=== PATIENT | male | born 1950 | race Caucasian/White ===

== ENCOUNTER 2021-03-21 12:51 | Inpatient (IN) | payer MEDICARE, BC ==
[~2021-03-21] VITALS: Ht 185.4 cm; Wt 105.2 kg
[~2021-03-21 12:51] MED LIST: ALBU1.257 IH; FOLI1TAB16 PO; FURO40TA5 PO; LACT10SO7 PO; LORA1TAB PO
--- NOTE | 2021-03-21 13:07 | NUR ---
TO ER BED 11, BIB RA 76 FROM HOME,C/O PAIN IN UMBILICAL HERNIA SITE AFTER CRAWLING THIS MORNING LOOKING FOR HIS PHONE, AAOX3, CONNECTED TO MONITOR
[2021-03-21 13:45] LABS: BASOPHILS # (AUTO) 0.1 K/uL (0.0-0.2); BASOPHILS % (AUTO) 0.8 % (0.0-2.0); EOSINOPHILS % (AUTO) 0.5 % (0.0-6.0); HEMATOCRIT 42 % (39-51); HEMOGLOBIN 13.8 g/dL (13.5-17.5); LYMPHOCYTES # (AUTO) 0.2 K/uL (0.8-4.8); LYMPHOCYTES % (AUTO) 1.3 % (20.0-44.0); MEAN CORPUSCULAR HGB CONC 33 g/dl (31.0-36.0); MEAN CORPUSCULAR VOLUME 106 fL (80-96); MONOCYTES # (AUTO) 0.4 K/uL (0.1-1.30); MONOCYTES % (AUTO) 3.4 % (2.0-12.0); NEUTROPHILS # (AUTO) 11.9 K/uL (1.8-8.9); PLATELET COUNT (AUTO) 101 K/uL (150-450); RED BLOOD CELL COUNT(AUTO) 3.95 MIL/uL (4.5-6.0); WHITE BLOOD COUNT (AUTO) 12.7 K/uL (4.3-11.0)
[2021-03-21 13:52] LABS: CALCIUM, SERUM 8.3 mg/dL (8.5-10.1); CREATININE 1.2 mg/dL (0.6-1.3); POTASSIUM 4.8 mmol/L (3.5-5.1)
[2021-03-21 13:58] LABS: ALBUMIN 2.5 g/dL (3.4-5.0); BILIRUBIN,DIRECT 5.6 mg/dL (0.0-0.2); BILIRUBIN,TOTAL 8.4 mg/dL (0.2-1.0); TOTAL PROTEIN, SERUM 6.3 g/dL (6.4-8.2)
--- NOTE | 2021-03-21 14:26 | NUR ---
UNABLE TO PROVIDE URINE AT THIS TIME
[2021-03-21 14:39] LABS: BAND % (MANUAL) 14 % (0.0-5.0); LYMPHOCYTES % (MANUAL) 4 % (16-48); MONOCYTES % (MANUAL) 5 % (0-11.0); NEUTROPHILS % (MANUAL) 77 (42-76)
[2021-03-21] MEDS ORDERED: ONDANSETRON HCL/PF 4 MG/2 ML VIAL ONE (15:24)
[2021-03-21] MEDS ORDERED: MORPHINE SULFATE INJ 4 MG/ML DISP.SYRIN ONE (15:25)
[2021-03-21] MEDS ORDERED: ONDANSETRON HCL/PF 4 MG/2 ML VIAL IVP ONE (15:30)
[2021-03-21] MEDS ORDERED: MORPHINE SULFATE INJ 2 MG/ML DISP.SYRIN IV ONE (15:30)
[2021-03-21] MEDS ORDERED: TEMA15CA PO (16:07)
[2021-03-21] MEDS ORDERED: OXYC10TA49 PO (16:07)
[2021-03-21] MEDS ORDERED: LOSA25TA27 PO (16:07)
[2021-03-21] MEDS ORDERED: VITA1TAB56 PO (16:07)
--- NOTE | 2021-03-21 16:42 | NUR ---
STILL UNABLE TO GIVE URINE
--- NOTE | 2021-03-21 16:55 | NUR ---
EPIC CALLED PROPERTY MANAGER PAGED
--- NOTE | 2021-03-21 17:24 | NUR ---
COVID SWAB DONE AND SENT TO LAB
--- NOTE | 2021-03-21 18:05 | NUR ---
CHARLOTTE NARAYAN AT BEDSIDE
--- NOTE | 2021-03-21 19:15 | NUR ---
URINE COLLECTED AND SENT TO LAB
--- NOTE | 2021-03-21 19:25 | NUR ---
REC'D REPORT FROM LUCITA OROZCO FOR ADILENE
--- NOTE | 2021-03-21 19:29 | NUR ---
CALLED LAB TO F/U ON COVID RESULT. "RETESTING SAMPLE" ANOTHER 10-15 MIN
[2021-03-21 19:41] LABS: BILIRUBIN,URINE SMALL (NEGATIVE); COLOR,URINE YELLOW (YELLOW); LEUKOCYTE ESTERASE ,URINE NEGATIVE (NEGATIVE); NITRITE, URINE NEGATIVE (NEGATIVE); PROTEIN,URINE NEGATIVE (NEGATIVE); UGLUCOSE NEGATIVE (NEGATIVE)
--- NOTE | 2021-03-21 19:45 | NUR ---
LAB REPORTED PT COVID ANTIGEN POSITIVE; CONTACT DROPLET ISO PRECAUTIONS IN PLACE.
--- NOTE | 2021-03-21 19:45 | NUR ---
MRSA SWAB COLLECTED AND SENT TO LAB. PATIENT'S BELONGINGS LIST DONE.
[2021-03-21 19:50] LABS: BACTERIA,URINE None seen /HPF (None Seen); MUCUS,URINE Few /LPF (None Seen); RBC,URINE 0-2 /HPF (0-2); SQUAMOUS EPITHELIAL CELL,UR Few /HPF (None Seen); WBC,URINE 0-2 /HPF (0-3)
--- NOTE | 2021-03-21 21:12 | NUR ---
attempted to give report, rn with pt, will call back
--- NOTE | 2021-03-21 21:24 | NUR ---
PER BILLET DRILLER FABRICE VERBAL ORDER, OK TO GIVE 2MG ATIVAN
[2021-03-21] MEDS ORDERED: LORAZEPAM INJ 2 MG/ML VIAL IV ONE (21:30)
[2021-03-21] MEDS: TOBRAMYCIN OPHTH 5ML 5 ML BOTTLE RIGHTEYE SCH (21:30)
[2021-03-21] MEDS ORDERED: HYDROCODONE/APAP 5/325MG TABLET PO PRN (21:30)
[2021-03-21] MEDS ORDERED: VANCOMYCIN 1.5 GM in IV D5W 500ml IV ONE (21:30)
--- NOTE | 2021-03-21 21:50 | NUR ---
GAVE REPORT TO LUCITA PRESCOTT FOR ADILENE
--- NOTE | 2021-03-21 21:55 | NUR ---
2155 Admitted from ER 70 year old male with Dx of Fractured left femur screw. Patient awake alert oriented x 4. Totally dependent on ADLs. On R/A with O2 saturation 98%. No c/o shortness of breath of difficulty breathing. Admission assessment done. Noted with multiple scars and severe dryness on both legs and feet. Patient with c/o pain on both legs. Handled gently during care. Good bed bath provided. Placed on isolation for covid. All precautions strictly observed. Turned and repositioned for comfort. Call light placed within reach and instructed patient to call for assistance.
[2021-03-21] MEDS ORDERED: VANCOMYCIN 1 GM VIAL ONE (22:33)
[2021-03-21] MEDS: CHLORDIAZEPOXIDE HCL 25 MG CAPSULE PO ONE ×2 (23:06→23:20)
[2021-03-21] MEDS: ENOXAPARIN SODIUM 40 MG/0.4 ML DISP.SYRIN SQ SCH (23:08)
[2021-03-21] MEDS: MORPHINE SULFATE INJ 2 MG/ML DISP.SYRIN IV PRN (23:10)
[2021-03-21] MEDS: IV NS 0.9% 1,000 ML IV PRN (23:11)
[2021-03-22] MEDS ORDERED: TOBRAMYCIN OPHTH 5ML 5 ML BOTTLE ONE
[2021-03-22] MEDS: TOBRAMYCIN OPHTH 5ML 5 ML BOTTLE RIGHTEYE SCH ×6 (01:00→21:00)
[2021-03-22] MEDS: MORPHINE SULFATE INJ 2 MG/ML DISP.SYRIN IV PRN ×5 (04:12→23:41)
--- NOTE | 2021-03-22 07:58 | NUR ---
RN CLOSING NOTE PATIENT REMAINS IN BED, A/O X 3-4. Totally dependent on ADLs. On R/A with O2 saturation 97%. No c/o shortness of breath of difficulty breathing. Patient with c/o pain on both legs.MEDICTED FOR PAIN NEEDED, and attended to all patient needs during shift. Placed on isolation for covid 19. All precautions strictly observed. Call light within reach, bed in low position, locked/ Will endorse to oncoming nurse for plan of care.
[2021-03-22 08:00] VITALS: BP 147/79
[2021-03-22 08:02] LABS: BASOPHILS % (AUTO) 0.2 % (0.0-2.0); EOSINOPHILS % (AUTO) 3.1 % (0.0-6.0); HEMATOCRIT 40 % (39-51); HEMOGLOBIN 13.9 g/dL (13.5-17.5); LYMPHOCYTES # (AUTO) 0.7 K/uL (0.8-4.8); LYMPHOCYTES % (AUTO) 5.1 % (20.0-44.0); MEAN CORPUSCULAR HGB CONC 35 g/dl (31.0-36.0); MEAN CORPUSCULAR VOLUME 104 fL (80-96); MONOCYTES # (AUTO) 1.9 K/uL (0.1-1.30); MONOCYTES % (AUTO) 13.6 % (2.0-12.0); NEUTROPHILS # (AUTO) 10.9 K/uL (1.8-8.9); PLATELET COUNT (AUTO) 87 K/uL (150-450); RED BLOOD CELL COUNT(AUTO) 3.85 MIL/uL (4.5-6.0); WHITE BLOOD COUNT (AUTO) 13.9 K/uL (4.3-11.0)
[2021-03-22 08:25] LABS: CARBON DIOXIDE 31 mmol/L (21-32); CHLORIDE 93 mmol/L (98-107); CREATININE 1.7 mg/dL (0.6-1.3); GLUCOSE 90 mg/dL (74-106); MAGNESIUM 1.8 mg/dL (1.8-2.4); PHOSPHORUS 3.3 mg/dL (2.5-4.9); POTASSIUM 4.9 mmol/L (3.5-5.1); SODIUM SERUM 132 mmol/L (136-145); UREA NITROGEN, BLOOD 29 mg/dL (7-18)
[2021-03-22 08:47] LABS: CHOLESTEROL 72 mg/dL (<200); HDL CHOLESTEROL 12 mg/dL (40-60); LDL 36 mg/dL (0-99); TRIGLYCERIDES 100 mg/dL (30-150)
--- NOTE | 2021-03-22 09:48 | NUR ---
WOUND CARE CONSULT: REVIEWED CHART, NURSING DOCUMENTATION AND SPOKE WITH NURSING STAFF. DEFER TO ORTHO FOR LEFT LEG ISSUE. RECOMMENDATIONS MADE FOR SKIN PROTECTION. DISCUSSED WITH NURSING STAFF. CURRENT DARIN SCORE IS 15. IN AGREEMENT WITH PLAN OF CARE. Addendum: 03/22/21 at 1007 by TING APARICIO WNDNU ADDITIONAL: PHOTO WERE FOUND OF DISCOLORATION TO BACK, FOOT WOUNDS/CALLUSES, DRY ABRASION TO KNEES AND SCARRING TO UPPER LEFT LEG, ALL PRESENT ON ADMISSION. DPM CONSULT CALLED TO DR OAKLEY. IN AGREEMENT WITH PLAN OF CARE.
[2021-03-22] MEDS ORDERED: Z GUARD REMEDY 2 OZ OINT TP PRN (10:00)
[2021-03-22 12:00] VITALS: BP 146/73
[2021-03-22] MEDS ORDERED: THIAMINE HCL 100 MG TABLET PO ONE (13:00)
[2021-03-22] MEDS: VANCOMYCIN 1.25 GM in IV D5W 250 ML IV SCH (13:06)
[2021-03-22] MEDS: FOLIC ACID 1 MG TABLET PO SCH (14:05)
[2021-03-22 16:00] VITALS: BP 151/61
[2021-03-22] MEDS: CHLORDIAZEPOXIDE HCL 25 MG CAPSULE PO SCH ×2 (16:04→21:30)
--- NOTE | 2021-03-22 18:45 | NUR ---
RN NOTE PT RESTING IN BED, ALERT AND RESPONSIVE. CONTINUES ON PAIN MGT WITH GOOD EFFECT. ON ROOM AIR WITH O2 SAT OF 95. JOSHUA MIDLINE IN PLACE AND PATENT, L HAND G [address] AND PATENT. CONTINUES ON IVF NS @60CC/HR. ALL DUE MEDICATIONS GIVEN. MORNING CARE DONE. SAFETY MEASURES FOLLOWED. WILL ENDORSE TO RN. ON COVID 19 AND BLOOD PREC (HEP C) FOLLOWED.
--- NOTE | 2021-03-22 19:20 | NUR ---
air brake rigger opening notes Pt is laying in bed comfortably watching TV. Pt is alert and orientedX4. Respiration is normal in room air. No SOB. No S/S of distress noted. IV site at L hand is clean, intact and infusing well NS @ 69 ml/hr. JOSHUA midline is clean, intact and flushes easily. Tele monitor showed SR /S tachy hr at 103. Safety precautions is maintained. Bed at low position, brakes locked, side rails upX3, hob elevated, bed alarm is on and call light is within reach. Will continue to monitor.
[2021-03-22 20:00] VITALS: BP 133/75
[2021-03-22] MEDS: ENOXAPARIN SODIUM 40 MG/0.4 ML DISP.SYRIN SQ SCH (21:31)
--- NOTE | 2021-03-22 21:57 | NUR ---
RN notes Pt refused Eye drop abx. Pt stated No! It has been two, three times!! Explained risks and benefits. Pt keep refusing. Will continue to monitor.
--- NOTE | 2021-03-22 23:44 | NUR ---
RN notes Pt is complaining of pain on abdomen and requesting pain meds. Administered morphine 2mg/ iv push/prn for pain. VS is stable. Safety precautions is maintained. Will continue to monitor.
[2021-03-23] VITALS (34 sets, daily range): BP systolic 59–154; BP diastolic 21–78
[2021-03-23] MEDS: VANCOMYCIN 1.25 GM in IV D5W 250 ML IV SCH (00:31)
[2021-03-23] MEDS: IV NS 0.9% 1,000 ML IV PRN (00:34)
[2021-03-23] MEDS: TOBRAMYCIN OPHTH 5ML 5 ML BOTTLE RIGHTEYE SCH ×6 (00:42→21:55)
[2021-03-23] MEDS: ONDANSETRON HCL/PF 4 MG/2 ML VIAL IVP PRN ×2 (00:44→08:53)
--- NOTE | 2021-03-23 00:44 | NUR ---
RN notes Pt is complaining of nausea and no vomit. Administered zofran/iv push/prn as ordered. Safety precautions is maintained. Will continue to monitor.
--- NOTE | 2021-03-23 02:36 | NUR ---
RN notes Pt is complaining of pain on abdomen and legs and requesting pain meds. Administered norco 5/po/prn as ordered for pain. Safety precautions is maintained. Will continue to monitor.
--- NOTE | 2021-03-23 04:00 | NUR ---
RN notes Pt accidentaly removed IV site on L hand. JOSHUA midline is intact, patent and flushes easily.
[2021-03-23] MEDS: MORPHINE SULFATE INJ 2 MG/ML DISP.SYRIN IV PRN ×2 (04:39→09:29)
[2021-03-23] MEDS: CHLORDIAZEPOXIDE HCL 25 MG CAPSULE PO SCH ×3 (04:49→21:00)
--- NOTE | 2021-03-23 05:00 | NUR ---
RN notes Pt vomited one time. Pt refused to meds. Explained riks and benefits.
--- NOTE | 2021-03-23 06:30 | NUR ---
young adult librarian closing notes Pt is resting in bed comfortably. Pt is alert and orientedX4. Respiration is normal in room air. No SOB. No S/S of distress noted. JOSHUA midline is clean, intact and infusing well NS@ 60 ml/hr. Tele monitor showed SR /S tachy hr at 130. routine meds were given as ordered including pain meds for pain management. Safety precautions is maintained. Bed at low position, brakes locked, side rails upX3, hob elevated, bed alarm is on and call light is within reach. Will endorse to am nurse for ADILENE.
[2021-03-23 07:50] LABS: BASOPHILS # (AUTO) 0.1 K/uL (0.0-0.2); BASOPHILS % (AUTO) 0.4 % (0.0-2.0); CALCIUM, SERUM 7.9 mg/dL (8.5-10.1); CARBON DIOXIDE 31 mmol/L (21-32); CHLORIDE 91 mmol/L (98-107); CREATININE 3.1 mg/dL (0.6-1.3); EOSINOPHILS % (AUTO) 2.5 % (0.0-6.0); GLUCOSE 125 mg/dL (74-106); HEMATOCRIT 42 % (39-51); HEMOGLOBIN 14.3 g/dL (13.5-17.5); LYMPHOCYTES # (AUTO) 1.5 K/uL (0.8-4.8); LYMPHOCYTES % (AUTO) 9.4 % (20.0-44.0); MAGNESIUM 1.7 mg/dL (1.8-2.4); MEAN CORPUSCULAR HGB CONC 34 g/dl (31.0-36.0); MEAN CORPUSCULAR VOLUME 104 fL (80-96); MONOCYTES # (AUTO) 1.6 K/uL (0.1-1.30); MONOCYTES % (AUTO) 9.5 % (2.0-12.0); NEUTROPHILS # (AUTO) 12.8 K/uL (1.8-8.9); NEUTROPHILS % (AUTO) 78.2 % (43.0-81.0); PHOSPHORUS 3.8 mg/dL (2.5-4.9); POTASSIUM 4.7 mmol/L (3.5-5.1); RED BLOOD CELL COUNT(AUTO) 4.03 MIL/uL (4.5-6.0); SODIUM SERUM 130 mmol/L (136-145); UREA NITROGEN, BLOOD 47 mg/dL (7-18); WHITE BLOOD COUNT (AUTO) 16.4 K/uL (4.3-11.0)
--- NOTE | 2021-03-23 08:10 | NUR ---
RN OPENING NOTES RECEIVED PATIENT AWAKE, ALERT/ORIENTED X 4. ON ROOM AIR WITH NO SOB OR ANY RESPIRATORY DISTRESS NOTED. IV LINE ON JOSHUA MIDLINE PATENT AND INTACT INFUSING NS @ 60 ML/HR. ALL SAFETY MEASURES IN PLACED. BED LOCKED, AT LOWEST POSITION WITH SIDE RAILS UP. HOB ELEVATED. CALL LIGHT WITHIN REACH. WILL CONTINUE TO MONITOR.
--- NOTE | 2021-03-23 08:56 | NUR ---
RN NOTE PATIENT VOMITED COFFEE GROUND EMESIS. DR. TORRES NOTIFIED.
[2021-03-23] MEDS: FOLIC ACID 1 MG TABLET PO SCH (09:00)
[2021-03-23 10:24] LABS: PLATELET COUNT (AUTO) 120 K/uL (150-450)
[2021-03-23] MEDS ORDERED: LACTULOSE 10 G/15 ML UDC (PYXIS) PO PRN (11:30)
[2021-03-23] MEDS ORDERED: APIXABAN 2.5 MG TABLET PO SCH (11:30)
--- NOTE | 2021-03-23 11:45 | NUR ---
RN NOTES HELD MEDICATION ELIQUIS DUE TO COFFEE GROUND EMESIS.
[2021-03-23] MEDS ORDERED: IV D5/ 0.9% NACL 1,000 ML IV PRN (12:00)
[2021-03-23] MEDS: METOPROLOL TARTRATE 50 MG TABLET PO SCH ×3 (12:00→23:38)
[2021-03-23] MEDS: PANTOPRAZOLE 40 MG VIAL IV SCH (12:30)
--- NOTE | 2021-03-23 13:07 | NUR ---
RN NOTE PATIENT FOUND WITH HOB AT 60 DEGREES, COVERED IN COFFEE GROUND EMESIS, AND NON RESPONSIVE. RAPID RESPONSE TEAM CALLED.
--- NOTE | 2021-03-23 13:08 | NUR ---
SS consult requested for ETOH abuse. SW will follow up at a later time.
[2021-03-23 13:31] LABS: ABG BASE EXCESS -8.7 mmol/L; ABG OXYGEN SATURATION 99.4 % (92.0-98.5); ABG PCO2 77.9 mmHg (35.0-45.0); ABG PO2 316.8 mmHg (75.0-100.0); AaDO2 318.3 mmHg; COHb 1.3 % (0.5-1.5); MetHb 0.3 % (0.0-1.5); O2Hb 97.8 % (94.0-97.0); SITE, ABG Right Femoral; VENT MODE, BG MANUAL VENTILATION
--- NOTE | 2021-03-23 13:45 | NUR ---
RT Code blue was called at 1305, CPR was already started when RT team arrived. Pt was intubated at [address] Branch with 8.0 ET tube secured at 26cm at the lip line, positive CO2 color changed noticed on CO2 detector, Equal bilateral breath sounds, and chest rise noted. ROSC was obtained at 1327, pt was transferred to ICU and placed on mechanical ventilation with noted settings. Addendum: 03/23/21 at 1441 by YUKI ALICIA RT Amended: Links added.
[2021-03-23] MEDS ORDERED: PROPOFOL 100 ML IV PRN (14:00)
--- NOTE | 2021-03-23 14:00 | NUR ---
RN NOTE CALLED CONCEPCION FAMILY MEMBER FOR UPDATE ON PATIENT, THERE WAS NO ANSWER, UNABLE TO LEAVE VOICEMAIL DUE TO FULL MAILBOX.
[2021-03-23] MEDS ORDERED: KETAMINE HCL(200MG/20ML) 10 MG/ML VIAL IV STA ×2 (14:48→14:56)
[2021-03-23] MEDS ORDERED: SODIUM BICARBONATE SYR 50 MEQ/50 ML DISP.SYRIN IV ONE (15:39)
[2021-03-23] MEDS ORDERED: EPINEPHRINE (1:10,000) SYRINGE 1 MG/10 ML DISP.SYRIN IVP ONE (15:39)
[2021-03-23 16:31] LABS: ABG BASE EXCESS -13.4 mmol/L; ABG OXYGEN SATURATION 92.7 % (92.0-98.5); ABG PCO2 50.8 mmHg (35.0-45.0); ABG PH 7.115 (7.350-7.450); ABG PO2 92.3 mmHg (75.0-100.0); AaDO2 207.1 mmHg; COHb 1.5 % (0.5-1.5); MetHb 0.3 % (0.0-1.5); PEEP,BG 0 cm H2O; SITE, ABG A-Line; VT, ABG 550 mL
[2021-03-23] MEDS ORDERED: SODIUM BICARBONATE SYR 50 MEQ/50 ML DISP.SYRIN IV STA (16:46)
[2021-03-23 16:55] LABS: BASOPHILS # (AUTO) 0.1 K/uL (0.0-0.2); BASOPHILS % (AUTO) 0.6 % (0.0-2.0); EOSINOPHILS % (AUTO) 1.7 % (0.0-6.0); HEMATOCRIT 40 % (39-51); HEMOGLOBIN 12.8 g/dL (13.5-17.5); LYMPHOCYTES # (AUTO) 1.9 K/uL (0.8-4.8); LYMPHOCYTES % (AUTO) 8.6 % (20.0-44.0); MEAN CORPUSCULAR HGB CONC 32 g/dl (31.0-36.0); MEAN CORPUSCULAR VOLUME 111 fL (80-96); MONOCYTES # (AUTO) 1.6 K/uL (0.1-1.30); MONOCYTES % (AUTO) 7.3 % (2.0-12.0); NEUTROPHILS # (AUTO) 18.2 K/uL (1.8-8.9); NEUTROPHILS % (AUTO) 81.8 % (43.0-81.0); PLATELET COUNT (AUTO) 181 K/uL (150-450); RED BLOOD CELL COUNT(AUTO) 3.65 MIL/uL (4.5-6.0); WHITE BLOOD COUNT (AUTO) 22.3 K/uL (4.3-11.0)
[2021-03-23] MEDS ORDERED: NOREPINEPHRINE 8 MG in IV NS 0.9% 242 ML IV PRN (17:00)
[2021-03-23] MEDS: PHENYLEPHRINE HCL IN 0.9% NACL 50 MG in PREMIX 1 EA IV PRN ×2 (17:09→19:53)
[2021-03-23 17:20] LABS: ALANINE AMINOTRANSFERASE 98 U/L (12-78); ALBUMIN 1.8 g/dL (3.4-5.0); ALKALINE PHOSPHATASE 239 U/L (46-116); ASPARTATE AMINOTRANSFERASE 628 U/L (15-37); BILIRUBIN,TOTAL 14.6 mg/dL (0.2-1.0); CALCIUM, SERUM 7.6 mg/dL (8.5-10.1); CARBON DIOXIDE 17 mmol/L (21-32); CHLORIDE 91 mmol/L (98-107); MAGNESIUM 2.7 mg/dL (1.8-2.4); POTASSIUM 5.6 mmol/L (3.5-5.1); SODIUM SERUM 134 mmol/L (136-145); TOTAL PROTEIN, SERUM 4.2 g/dL (6.4-8.2); UREA NITROGEN, BLOOD 53 mg/dL (7-18)
[2021-03-23 17:46] LABS: GLUCOSE 20 mg/dL (74-106); PHOSPHORUS 9.5 mg/dL (2.5-4.9)
[2021-03-23] MEDS ORDERED: DEXTROSE 50%-WATER 50 ML DISP.SYRIN IVP ONE (18:00)
[2021-03-23 18:35] LABS: BAND % (MANUAL) 6 % (0.0-5.0); EOSINOPHILS % (MANUAL) 1 % (0-4); LYMPHOCYTES % (MANUAL) 12 % (16-48); MONOCYTES % (MANUAL) 4 % (0-11.0); NEUTROPHILS % (MANUAL) 74 (42-76); REACTIVE LYMPHOCYTES 3 % (0-0)
[2021-03-23] MEDS ORDERED: ALBUMIN 25% 25 GM in PREMIX 1 EA IV PRN (19:00)
--- NOTE | 2021-03-23 19:28 | NUR ---
RT Pt received orally intubated w/ 8.0 ETT secured at 26cm at the lip line on [facility] vent on settings AC mode, RR 28, VT 580, FIO2 50%, PEEP +0. Ordered ABG done and results reported to MD Ware. Airway patent and secured. RESIST COATER DEVELOPER done. Pt suctioned. Alarms set and audible. Ambubag at bedside. Vent plugged into red outlet. Will cont to monitor. Addendum: 03/23/21 at 2030 by ALVAREZ ACUNA RT Amended: Links added.
[2021-03-23 19:37] LABS: ABG BASE EXCESS -12.1 mmol/L; ABG OXYGEN SATURATION 95.1 % (92.0-98.5); ABG PCO2 44.9 mmHg (35.0-45.0); ABG PH 7.169 (7.350-7.450); ABG PO2 99.7 mmHg (75.0-100.0); AaDO2 206.3 mmHg; COHb 1.2 % (0.5-1.5); MetHb 0.1 % (0.0-1.5); O2Hb 93.9 % (94.0-97.0); SITE, ABG A-Line
--- NOTE | 2021-03-23 19:41 | NUR ---
ICU/RN: HD STOPPED PER DR. LIRA.
--- NOTE | 2021-03-23 19:49 | NUR ---
ICU/RN: ABG RESULTS RELAYED TO DR. ASHFORD. NEW ORDERS RECEIVED AND CARRIED OUT.
[2021-03-23] MEDS ORDERED: Sodium Bicarbonate 100 MEQ in IV D5W 1,000 ML IV PRN (20:00)
[2021-03-23] MEDS ORDERED: DOXYCYCLINE HYCLATE (100 MG) 100 MG TABLET PO SCH (21:00)
[2021-03-23] MEDS: NOREPINEPHRINE 32 MG in IV NS 0.9% 242 ML IV PRN (21:11)
[2021-03-23] MEDS: PHENYLEPHRINE HCL IV PRN (21:19)
[2021-03-23] MEDS: NACL IV PRN (21:19)
[2021-03-23] MEDS ORDERED: MEROPENEM 500 MG in IV NS 0.9% 50 ML IV ONE (22:00)
--- NOTE | 2021-03-23 23:00 | NUR ---
ICU/RN: ARTERIAL LINE ZEROED WITH BOOKKEEPER SHEELA.
[2021-03-23] MEDS ORDERED: DEXTROSE 50%-WATER 50 ML DISP.SYRIN ONE (23:19)
[2021-03-23] MEDS ORDERED: DEXTROSE 50%-WATER 50 ML DISP.SYRIN IVP STA (23:20)
--- NOTE | 2021-03-23 23:23 | NUR ---
ICU/RN: POC ACCUCHECK DONE. PT BLOOD GLUCOSE 20. DULCE ACNP NOTIFIED. NEW ORDERS TO CHANGE IVF RATE. GIVE STAT AMP OF D50 AND BEGIN Q6H NPO ACCUCHECK. WILL CONTINUE TO MONITOR.
[2021-03-23] MEDS ORDERED: MEROPENEM 500 MG VIAL IV ONE (23:26)
[2021-03-23] MEDS ORDERED: DEXTROSE 50%-WATER 50 ML DISP.SYRIN IV PRN (23:30)
[2021-03-23] MEDS ORDERED: INSULIN REGULAR, HUMAN 100 UNIT/ML 3 ML VIAL SQ PRN (23:30)
[2021-03-24] VITALS (29 sets, daily range): BP systolic 80–153; BP diastolic 24–42
[2021-03-24] MEDS: BLOOD SUGAR DIAGNOSTIC 1 EACH STRIP IN SCH ×2 (00:05→06:05)
[2021-03-24] MEDS: PHENYLEPHRINE HCL IV PRN ×2 (01:00→04:32)
[2021-03-24] MEDS: NACL IV PRN ×2 (01:00→04:32)
[2021-03-24] MEDS: PANTOPRAZOLE 40 MG VIAL IV SCH (01:02)
[2021-03-24] MEDS: TOBRAMYCIN OPHTH 5ML 5 ML BOTTLE RIGHTEYE SCH ×2 (01:02→05:00)
[2021-03-24 01:13] LABS: BASOPHILS # (AUTO) 0.2 K/uL (0.0-0.2); BASOPHILS % (AUTO) 0.5 % (0.0-2.0); EOSINOPHILS % (AUTO) 2.2 % (0.0-6.0); HEMATOCRIT 34 % (39-51); HEMOGLOBIN 10.6 g/dL (13.5-17.5); LYMPHOCYTES # (AUTO) 2.3 K/uL (0.8-4.8); LYMPHOCYTES % (AUTO) 6.4 % (20.0-44.0); MEAN CORPUSCULAR HGB CONC 31 g/dl (31.0-36.0); MEAN CORPUSCULAR VOLUME 113 fL (80-96); MONOCYTES # (AUTO) 2.3 K/uL (0.1-1.30); MONOCYTES % (AUTO) 6.5 % (2.0-12.0); NEUTROPHILS # (AUTO) 30.3 K/uL (1.8-8.9); NEUTROPHILS % (AUTO) 84.4 % (43.0-81.0); PLATELET COUNT (AUTO) 163 K/uL (150-450); RED BLOOD CELL COUNT(AUTO) 3.04 MIL/uL (4.5-6.0)
[2021-03-24 01:18] LABS: WHITE BLOOD COUNT (AUTO) 35.9 K/uL (4.3-11.0)
--- NOTE | 2021-03-24 01:36 | NUR ---
ICU/RN: DULCE ACNP NOTIFIED OF EPISODE OF COFFEE GROUND EMESIS AND CRITICAL WBC LEVEL OF 35.9. PER DULCE CONTINUE TO WATCH H/H LEVELS AND TRANSFUSE IF LESS THAN 8.
[2021-03-24 01:56] LABS: BAND % (MANUAL) 15 % (0.0-5.0); LYMPHOCYTES % (MANUAL) 12 % (16-48); MONOCYTES % (MANUAL) 5 % (0-11.0); NEUTROPHILS % (MANUAL) 68 (42-76)
[2021-03-24] MEDS: NOREPINEPHRINE 32 MG in IV NS 0.9% 242 ML IV PRN (04:11)
--- NOTE | 2021-03-24 04:27 | NUR ---
04:30 HRS WAS ADVISED BY ICU David BROWNE TO COME BACK TO DO XRAY LATER IN AM PATIENT IS UNSTABLE AT THIS TIME...END OF NOTE.
[2021-03-24] MEDS ORDERED: VASOPRESSIN INJ 40 UNIT in IV NS 0.9% 38 ML IV PRN (04:30)
[2021-03-24] MEDS ORDERED: VASOPRESSIN INJ 20 UNIT/ML VIAL ONE (04:44)
--- NOTE | 2021-03-24 04:44 | NUR ---
ICU/RN: NOTIFIED DULCE FULLER ABOUT PT STATUS MAXXED OUT ON LEVOPHED AND NEOSYNEPHIRINE. THIRD PRESSOR WAS ORDERED VASO. TRIED TO CALL PT SON SYLVAIN [phone] TO UPDATE HIM ON HIS FATHERS STATUS WAS UNABLE TO REACH HIM LEFT MESSAGE. MORNING LABS DRAWN STAT. WILL CONTINUE TO MONITOR.
[2021-03-24 04:48] LABS: BASOPHILS # (AUTO) 0.3 K/uL (0.0-0.2); BASOPHILS % (AUTO) 0.9 % (0.0-2.0); EOSINOPHILS % (AUTO) 1.9 % (0.0-6.0); HEMATOCRIT 34 % (39-51); HEMOGLOBIN 10.8 g/dL (13.5-17.5); LYMPHOCYTES # (AUTO) 1.8 K/uL (0.8-4.8); LYMPHOCYTES % (AUTO) 5.1 % (20.0-44.0); MEAN CORPUSCULAR HGB CONC 31 g/dl (31.0-36.0); MEAN CORPUSCULAR VOLUME 114 fL (80-96); MONOCYTES # (AUTO) 2.2 K/uL (0.1-1.30); MONOCYTES % (AUTO) 6.1 % (2.0-12.0); NEUTROPHILS # (AUTO) 31.2 K/uL (1.8-8.9); PLATELET COUNT (AUTO) 145 K/uL (150-450); RED BLOOD CELL COUNT(AUTO) 3.02 MIL/uL (4.5-6.0)
[2021-03-24] MEDS: CHLORDIAZEPOXIDE HCL 25 MG CAPSULE PO SCH (05:00)
[2021-03-24 05:05] LABS: WHITE BLOOD COUNT (AUTO) 36.3 K/uL (4.3-11.0)
--- NOTE | 2021-03-24 05:28 | NUR ---
ICU/RN: DULCE FULLER NOTIFIED OF CRITICAL POTASSIUM 7.2. 10 UNITS OF REGULAR INSULIN IVP AND 2 AMPS OF D50% ORDERED. WILL CONTINUE TO MONITOR BLOOD GLUCOSE CAREFULLY.
[2021-03-24] MEDS ORDERED: INSULIN REGULAR, HUMAN 100 UNIT/ML 3 ML VIAL IV STA (05:37)
[2021-03-24] MEDS: METOPROLOL TARTRATE 50 MG TABLET PO SCH (05:48)
[2021-03-24] MEDS ORDERED: DEXTROSE 50%-WATER 50 ML DISP.SYRIN IVP ONE (06:00)
--- NOTE | 2021-03-24 06:20 | NUR ---
ICU/RN: DULCE FULLER ORDERED D10W WITH 100MEQ SODIUM BICARBONATE. AWAITING PHARMACY TO VERIFY.
[2021-03-24] MEDS ORDERED: IV 10% DEXTROSE 1,000 ML IV PRN ×2 (06:30)
[2021-03-24 06:34] LABS: ABG BASE EXCESS -17.4 mmol/L; ABG OXYGEN SATURATION 90.2 % (92.0-98.5); ABG PCO2 42.3 mmHg (35.0-45.0); ABG PH 7.067 (7.350-7.450); ABG PO2 80.8 mmHg (75.0-100.0); AaDO2 228.1 mmHg; COHb 1.4 % (0.5-1.5); MetHb 0.3 % (0.0-1.5); O2Hb 88.7 % (94.0-97.0); SITE, ABG A-Line
--- NOTE | 2021-03-24 06:42 | NUR ---
ICU/RN: SPOKE WITH PTS SON SYLVAIN. GAVE UPDATE ON PT. SYLVAIN AGREED TO CHANGE CODE STATUS TO DNR. VERIFIED WITH MELQUIADES MANTILLA RN.
[2021-03-24] MEDS ORDERED: SODIUM BICARBONATE IV SCH ×2 (07:00)
[2021-03-24] MEDS ORDERED: DEXTROSE IV SCH ×2 (07:00)
--- NOTE | 2021-03-24 07:22 | NUR ---
RN OPENING NOTE RECEIVE REPORT FROM HARM REDUCTION WORKER NURSE. PATIENT CONDITION IS IN DECLINE. ON 3 PRESSURES. VENT SETTING: AC 28, TV 580, FIO2 50, PEEP 0. WILL CONTINUE TO MONITOR.
--- NOTE | 2021-03-24 07:28 | NUR ---
MED NOTE: ALL BAGS OF NEOSYNEPHRINE ADMINISTERED DURING MY SHIFT WERE 50MG IN 250ML.
[2021-03-24] MEDS ORDERED: PHENYLEPHRINE HCL IN 0.9% NACL 50 MG in PREMIX 1 EA IV PRN (07:30)
--- NOTE | 2021-03-24 07:52 | NUR ---
vent changes below per dr. euceda: 650 tidal volume. Addendum: 03/24/21 at 0753 by SAMANTHA VICTOR RT Amended: Links added.
[2021-03-24] MEDS ORDERED: MEROPENEM 500 MG in IV NS 0.9% 100 ML IV SCH (08:00)
[2021-03-24] MEDS ORDERED: HYDROCORTISONE SOD SUCCINATE 100 MG/2 ML VIAL IV SCH (08:30)
--- NOTE | 2021-03-24 08:39 | NUR ---
PATIENT NOTED ASYSTOLE ON MONITOR. NO ARTERIAL BP. NO HEART TONE. NO PALPABLE PULSES. PUPILS BILATERALLY FIXED AND DILATED. MAX OUT ON TRIPLE VASOPRESSORS. DNR STATUS PER FAMILY DECISIONS/MD'S ORDER. PRONOUNCED.
--- NOTE | 2021-03-24 08:44 | NUR ---
RN NOTE PATIENT AND WAS PRONOUNCE AT 0837
[2021-03-24] MEDS ORDERED: MEROPENEM 500 MG in IV NS 0.9% 50 ML IV SCH ×2 (09:00→10:00)
--- NOTE | 2021-03-24 10:34 | NUR ---
RN NOTE [facility] WAS CALLED. REPORT WAS GIVEN TO LULA AT 0903.
--- NOTE | 2021-03-24 10:37 | NUR ---
RN NOTE PATIENT BODY WAS TRANSFER TO [facility]. ALL PAPER WORK GIVEN TO NURSING AMBULANCE DISPATCHER Addendum: 03/24/21 at 1129 by JOHNNY DEE RN PATIENT ASYSTOLE. ON MAXIMUM 3 VASOPRESSOR. DNR.
[2021-03-24 13:21] LABS: ALANINE AMINOTRANSFERASE 1464 U/L (12-78); ALBUMIN 1.5 g/dL (3.4-5.0); ALKALINE PHOSPHATASE 269 U/L (46-116); BILIRUBIN,TOTAL 9.6 mg/dL (0.2-1.0); CALCIUM, SERUM 7.1 mg/dL (8.5-10.1); CARBON DIOXIDE 14 mmol/L (21-32); CHLORIDE 92 mmol/L (98-107); CREATININE 3.8 mg/dL (0.6-1.3); GLUCOSE 82 mg/dL (74-106); MAGNESIUM 2.9 mg/dL (1.8-2.4); SODIUM SERUM 136 mmol/L (136-145); TOTAL PROTEIN, SERUM 3.5 g/dL (6.4-8.2); UREA NITROGEN, BLOOD 48 mg/dL (7-18)
[2021-03-24 13:28] LABS: POTASSIUM 11.3 mmol/L (3.5-5.1)
[2021-03-24 14:53] LABS: PHOSPHORUS 16.6 mg/dL (2.5-4.9)
[2021-03-24 14:54] LABS: ASPARTATE AMINOTRANSFERASE 12670 U/L (15-37)
== END 2021-03-24 11:10 | DRG 559 ==
LOC: ER 12:53 → MEDSG1 21:07 → TELE1 21:36 → ICU 03-23 13:32
PROVIDERS: ADMIT Nurse Practitioner Acute Care
PROC: 05HB33Z Insertion of Infusion Device into Right Basilic Vein, Percutaneous Approach (ICD-10-PCS; 2021-03-22)
PROC: 5A1935Z Respiratory Ventilation, Less than 24 Consecutive Hours (ICD-10-PCS; principal; 2021-03-23)
PROC: 5A2204Z Restoration of Cardiac Rhythm, Single (ICD-10-PCS; 2021-03-23)
PROC: 5A12012 Performance of Cardiac Output, Single, Manual (ICD-10-PCS; 2021-03-23)
PROC: 0BH18EZ Insertion of Endotracheal Airway into Trachea, Via Natural or Artificial Opening Endoscopic (ICD-10-PCS; 2021-03-23)
PROC: 5A1D70Z Performance of Urinary Filtration, Intermittent, Less than 6 Hours Per Day (ICD-10-PCS; 2021-03-23)
PROC: 05HN33Z Insertion of Infusion Device into Left Internal Jugular Vein, Percutaneous Approach (ICD-10-PCS; 2021-03-23)
PROC: B544ZZA Ultrasonography of Left Jugular Veins, Guidance (ICD-10-PCS; 2021-03-23)
PROC: 05HY33Z Insertion of Infusion Device into Upper Vein, Percutaneous Approach (ICD-10-PCS; 2021-03-23)
PROC: 04HK33Z Insertion of Infusion Device into Right Femoral Artery, Percutaneous Approach (ICD-10-PCS; 2021-03-23)
DX: T84.115A Breakdown (mechanical) of internal fixation device of left femur, initial encounter (principal); A41.89 Other specified sepsis; U07.1 COVID-19; R65.21 Severe sepsis with septic shock; J96.01 Acute respiratory failure with hypoxia; N17.0 Acute kidney failure with tubular necrosis; J69.0 Pneumonitis due to inhalation of food and vomit; E87.1 Hypo-osmolality and hyponatremia; E44.0 Moderate protein-calorie malnutrition; F11.23 Opioid dependence with withdrawal; E87.2 Acidosis; F10.239 Alcohol dependence with withdrawal, unspecified; L03.115 Cellulitis of right lower limb; L03.116 Cellulitis of left lower limb; J98.11 Atelectasis; H44.001 Unspecified purulent endophthalmitis, right eye; Y83.8 Other surgical procedures as the cause of abnormal reaction of the patient, or of later complication, without mention of misadventure at the time of the procedure; Y92.009 Unspecified place in unspecified non-institutional (private) residence as the place of occurrence of the external cause; Z86.73 Personal history of transient ischemic attack (TIA), and cerebral infarction without residual deficits; E86.0 Dehydration; Z66 Do not resuscitate; Z79.899 Other long term (current) drug therapy; Z79.51 Long term (current) use of inhaled steroids; B18.2 Chronic viral hepatitis C; K76.0 Fatty (change of) liver, not elsewhere classified; I48.91 Unspecified atrial fibrillation; K52.9 Noninfective gastroenteritis and colitis, unspecified; Y90.9 Presence of alcohol in blood, level not specified; L60.2 Onychogryphosis; L85.3 Xerosis cutis; L97.519 Non-pressure chronic ulcer of other part of right foot with unspecified severity; K80.20 Calculus of gallbladder without cholecystitis without obstruction; K42.9 Umbilical hernia without obstruction or gangrene; K44.9 Diaphragmatic hernia without obstruction or gangrene; K70.30 Alcoholic cirrhosis of liver without ascites; J45.909 Unspecified asthma, uncomplicated; I70.0 Atherosclerosis of aorta; I49.01 Ventricular fibrillation; N18.9 Chronic kidney disease, unspecified; B35.1 Tinea unguium; E66.9 Obesity, unspecified
CPT/HCPCS: 31720; 36415; 36600; 71045-TC; 73552; 76770-TC; 80048-TC; 80053-TC; 80061-TC; 80076-TC; 80202-TC; 81001; 82140-TC; 82533; 82550-TC; 82553; 82803-TC; 82962-TC; 83690-TC; 83735-TC; 84100-TC; 85025-TC; 85027-TC; 85378-TC; 85610-TC; 85730-TC; 86140-TC; 86706; 86850-TC; 87081-TC; 87340; 90935-TC; 92950-TC; 93307-TC; 94002-TC; 94003-TC; 94760-TC; 94799-TC; 99082-TC; A4216; C1750; C9113; C9803; G0378; J0171; J1650; J1815; J2060; J2185; J2270; J2405; J3370; J3490; J7030; J7040; J7042; J7050; J7060; J7070; P9047